=== PATIENT | female | born 1960 | race African-American/Black ===

== ENCOUNTER 2016-06-04 12:49 | Emergency (ER) | payer MEDICAID ==
[~2016-06-04] VITALS: Ht 160 cm; Wt 75.7 kg
[~2016-06-04 12:49] MED LIST: AMLO10TA4 PO; FLUO40CA49 PO; LOSA50TA21 PO
[2016-06-04 13:50] LABS: *BILIRUBIN,URIN NEGATIVE (NEGATIVE); *BLOOD, URINE NEGATIVE (NEGATIVE); *CLARITY,URINE CLEAR (CLEAR); *COLOR,URINE YELLOW (YELLOW); *KETONES,URINE NEGATIVE (NEGATIVE); *PROTEIN,URINE 1+ (NEGATIVE); *UROBILINOGEN,URINE 0.2 E.U./dl (NORMAL); LEUKOCYTE ESTERASE ,URINE NEGATIVE (NEGATIVE); NITRITE, URINE NEGATIVE (NEGATIVE); UGLUCOSE NEGATIVE (NEGATIVE)
[2016-06-04 14:08] LABS: BACTERIA,URINE MODERATE /HPF (NONE SEEN); RBC,URINE 0-3 /HPF (0-3); SQUAMOUS EPITHELIAL CELL,UR MODERATE /HPF (NONE SEEN)
--- NOTE | 2016-06-04 14:18 | NUR ---
Patient discharged home in stable conditon. Written and verbal after care instructions given. Patient verbalizes understanding of instructions.
[2016-06-04 14:19] VITALS: BP 148/52
== END 2016-06-04 14:20 | disposition home or self-care (01) ==
LOC: ER 12:49
DX: M54.5 Low back pain (principal); I10 Essential (primary) hypertension; J45.909 Unspecified asthma, uncomplicated; Z88.2 Allergy status to sulfonamides; Z88.6 Allergy status to analgesic agent; Z88.1 Allergy status to other antibiotic agents; Z88.8 Allergy status to other drugs, medicaments and biological substances
CPT/HCPCS: A4663

== ENCOUNTER 2021-11-27 14:59 | Inpatient (IN) | payer MEDICARE, OTHER ==
[~2021-11-27] VITALS: Ht 162.6 cm; Wt 99.8 kg
[~2021-11-27 14:59] MED LIST changes: -LOSA50TA21 PO; +LOSA50TA39 PO
[2021-11-27] MEDS ORDERED: ASPIRIN 325 MG TABLET PO ONE (15:15)
[2021-11-27] MEDS ORDERED: NITROGLYCERIN 0.4 MG/TAB BOTTLE SL ONE ×2 (15:15→15:19)
[2021-11-27] MEDS ORDERED: ASPIRIN 325 MG TABLET ONE (15:19)
--- NOTE | 2021-11-27 15:41 | NUR ---
Nitro sublingual given at 1525. after reassessing chest pain at 1530, pt reports pain relief. second dose held, MD made aware.
[2021-11-27 16:07] LABS: HEMATOCRIT 38.1 % (31.2-41.9); MEAN CORPUSCULAR HEMOGLOBIN 31.7 uug (24.7-32.8); MEAN CORPUSCULAR VOLUME 96.6 fL (75.5-95.3); PLATELET COUNT (AUTO) 425 K/uL (179-408)
[2021-11-27 16:10] LABS: CARBON DIOXIDE 28 mmol/L (21-32); CHLORIDE 101 mmol/L (98-107); CREATININE 1.6 mg/dL (0.6-1.3); GLUCOSE 132 mg/dL (74-106); POTASSIUM 4.8 mmol/L (3.5-5.1); UREA NITROGEN, BLOOD 18 mg/dL (7-18)
[2021-11-27 16:22] LABS: ALANINE AMINOTRANSFERASE 42 U/L (14-59); ALKALINE PHOSPHATASE 62 U/L (50-136); ASPARTATE AMINOTRANSFERASE 20 U/L (15-37); BILIRUBIN,DIRECT < 0.1 mg/dL (0.0-0.2); BILIRUBIN,TOTAL 0.1 mg/dL (0.2-1.0)
[2021-11-27] MEDS ORDERED: ACETAMINOPHEN 325 MG TABLET PO PRN (20:00)
[2021-11-27] MEDS ORDERED: HYDROCODONE/APAP 5-325MG TABLET PO PRN (20:00)
[2021-11-27] MEDS ORDERED: hydrALAZINE HCL 25 MG TABLET PO PRN (20:00)
[2021-11-27] MEDS ORDERED: ONDANSETRON 4 MG/2 ML VIAL IV PRN (20:00)
[2021-11-27] MEDS ORDERED: TEMAZEPAM 15 MG CAPSULE PO PRN (20:00)
--- NOTE | 2021-11-27 21:19 | NUR ---
report called in to 3rd floor, nurse is Pao PADGETT. pt to be trasfered to Telemetry for Chest pain, admitting MD Jules.
[2021-11-27 23:42] VITALS: BP 136/71
--- NOTE | 2021-11-27 23:55 | NUR ---
61 year old female admitted to room 318 for chest pain .pt is axox4 call light with in reach vs are stable md notified for the admission
--- NOTE | 2021-11-28 00:13 | NUR ---
patient was transfered to [facility] for chest pain room 318.
[2021-11-28 05:45] VITALS: BP 126/59
[2021-11-28] MEDS ORDERED: PANTOPRAZOLE SODIUM 40 MG TABLET.DR PO SCH (07:00)
[2021-11-28 07:24] LABS: HEMATOCRIT 36.7 % (31.2-41.9); MEAN CORPUSCULAR HEMOGLOBIN 32.8 uug (24.7-32.8); MEAN CORPUSCULAR VOLUME 96.5 fL (75.5-95.3); PLATELET COUNT (AUTO) 375 K/uL (179-408)
[2021-11-28] MEDS ORDERED: MAG HYDROX/AL HYDROX/SIMETH 30 ML LIQUID UDC PO PRN (07:45)
[2021-11-28 07:53] LABS: THYROID STIMULATING HORMONE 1.272 mIU/mL (0.358-3.740)
[2021-11-28 07:54] LABS: CREATININE 1.4 mg/dL (0.6-1.3); PHOSPHOROUS 4.5 mg/dL (2.5-4.9); POTASSIUM 4.5 mmol/L (3.5-5.1)
--- NOTE | 2021-11-28 08:04 | NUR ---
Awake, alert, oriented x 4. Denies chest pain. Seen by Dr. Daigle
[2021-11-28] MEDS ORDERED: AMLODIPINE 10 MG TABLET PO SCH (09:00)
[2021-11-28] MEDS ORDERED: FLUOXETINE HCL 20 MG CAPSULE PO SCH (09:00)
[2021-11-28 12:00] VITALS: BP 98/62
[2021-11-28] MEDS ORDERED: hydrALAZINE HCL 25 MG TABLET PO PRN (13:45)
--- NOTE | 2021-11-28 14:51 | NUR ---
With discharge order to home. Saline lock and telemetry removed. DC instructions given, verbalized understanding. Went home per ambulatory in fair condition, denies chest pain, not in distress with own arrangement of transportation. KG/PE
[2021-11-28] MEDS ORDERED: DOCUSATE SODIUM 100 MG CAPSULE PO SCH (21:00)
== END 2021-11-28 14:51 | disposition home or self-care (01) | DRG 391 ==
LOC: ER 14:59 → TELE3 23:26
PROVIDERS: ADMIT Internal Medicine; ATTEND Internal Medicine
DX: K21.9 Gastro-esophageal reflux disease without esophagitis (principal); N17.0 Acute kidney failure with tubular necrosis; D75.89 Other specified diseases of blood and blood-forming organs; E66.9 Obesity, unspecified; E78.5 Hyperlipidemia, unspecified; I10 Essential (primary) hypertension; Z20.822 Contact with and (suspected) exposure to COVID-19; Z86.73 Personal history of transient ischemic attack (TIA), and cerebral infarction without residual deficits; Z87.11 Personal history of peptic ulcer disease; F17.210 Nicotine dependence, cigarettes, uncomplicated; Z88.2 Allergy status to sulfonamides; V89.2XXS Person injured in unspecified motor-vehicle accident, traffic, sequela; Z68.37 Body mass index [BMI] 37.0-37.9, adult; F32.A Depression, unspecified; F41.9 Anxiety disorder, unspecified; Z86.74 Personal history of sudden cardiac arrest; R73.9 Hyperglycemia, unspecified
CPT/HCPCS: 36415; 71045; 83735; 84100; 84443; 84484; 85025; 93005; A4663; G0378